=== PATIENT | female | born 1955 | race Caucasian/White ===

== ENCOUNTER → 2019-07-08 | Outpatient (CLI) | payer OTHER ==
--- NOTE | 2019-07-08 14:48 | KCIC ---
BILATERAL SCREENING MAMMOGRAM History: Routine screening. Comparison: None available. Interpreted as new baseline examination. Technique: Routine bilateral digital mammogram views were obtained. Findings: Breast Tissue Density C : The breasts are heterogeneously dense, which may obscure small masses. A benign calcification is noted in each breast. There are no dominant masses, suspicious microcalcifications, or architectural distortion. IMPRESSION: No mammographic evidence of malignancy. Recommend routine screening. BI-RADS category 2: Benign findings. The images were reviewed with computer aided detection. Patient information is entered into the reminder system with a target due date for the next screening mammogram. Mammography is the most sensitive method for finding small breast cancers, but it does not detect them all and is not a substitute for careful clinical examination. A negative mammogram does not negate a clinically suspicious finding and should not result in delay in biopsying a clinically suspicious abnormality. "Our facility is accredited by the [employer] Mammography [employer]." Electronically signed by: Jovanny Bob MD (07/08/2019 2:45 PM) [id number]
== END | disposition home or self-care (01) ==
LOC: KCIC MAMMO 13:38
PROVIDERS: ATTEND Nurse Practitioner Gerontology
DX: Z12.31 Encounter for screening mammogram for malignant neoplasm of breast (principal); N64.89 Other specified disorders of breast
CPT/HCPCS: 77067

== ENCOUNTER → 2020-01-11 | Outpatient (CLI) | payer OTHER ==
--- NOTE | 2020-01-11 17:33 | RAD ---
2 view study of both knees Clinical indications: Bilateral knee pain. History of MS. Left knee: No acute fracture or dislocation or lytic process is seen. No significant arthritic change is evident. No left knee joint effusion is seen radiographically. Right knee: No acute fracture or dislocation or lytic process is seen. No significant arthritic change is seen. No significant right knee joint effusion is seen. IMPRESSION: No significant osseous abnormality of either knee. Electronically signed by: Dustin Schaeffer MD (01/11/2020 5:30 PM) [id number]
== END | disposition home or self-care (01) ==
LOC: RAD 14:29
PROVIDERS: ATTEND Psychiatry & Neurology Neurology with Special Qualifications in Child Neurology
DX: M25.561 Pain in right knee (principal); M25.562 Pain in left knee; G35 Multiple sclerosis
CPT/HCPCS: 73560

== ENCOUNTER → 2020-06-16 | Outpatient (CLI) | payer OTHER ==
--- NOTE | 2020-06-16 16:46 | KCIC ---
INDICATION: Reason: coccydynia / Spl. Instructions: / History: Injured coccyx as a child. Pain in coccyx. COMPARISON: Plain film from May 29, 2020 TECHNIQUE: Multiplanar, multisequence MRI images are obtained through the sacrum and coccyx. FINDINGS: There is degenerative changes seen at the partially visualized lower lumbar spine with disc protrusion and osteophyte formation at L4-5 with annular tear. There is also L4-5 bilateral facet joint effusions with facet hypertrophy. At L3-4 there is some high T2 signal seen surrounding the right facet joint with edema seen within the pedicle and vertebral body as well as adjacent soft tissues. This is not well evaluated since this is only partially seen. Partial visualization of suspected disc protrusion as well. There is also facet joint effusion at L5-S1 on the left with adjacent small synovial cyst. Tarlov cyst formation at the sacrum measuring up to approximately a centimeter. There is some mild high T2 signal seen within the perispinal musculature. Colonic diverticulosis. Small amount of high T2 signal seen in the presacral region. IMPRESSION: * No evidence of acute fracture or dislocation within the sacrum. * There is a small amount of high T2 signal seen in the presacral space which could be from trace fluid or mild presacral edema. * At the partially visualized lower lumbar spine. Degenerative changes including disc protrusions as well as facet hypertrophy with facet joint effusions. This is only partially seen on this examination. There is also some edema seen surrounding the right facet joint at L3-4 with edema in the adjacent marrow. * Mild high T2 signal is seen within the perispinal musculature which could be from edema. Could be from muscular strain if the patient has appropriate symptoms. Electronically signed by: Basim Helm MD (06/16/2020 4:38 PM) [id number]
== END ==
LOC: KCIC MRI 13:42
PROVIDERS: ATTEND Orthopaedic Surgery
DX: K57.30 Diverticulosis of large intestine without perforation or abscess without bleeding (principal); M51.26 Other intervertebral disc displacement, lumbar region; M25.78 Osteophyte, vertebrae; G03.8 Meningitis due to other specified causes
CPT/HCPCS: 72195

== ENCOUNTER → 2020-08-30 | Outpatient (CLI) | payer OTHER ==
--- NOTE | 2020-08-30 17:21 | KCIC ---
Bilateral digital screening mammograms: Reason for examination: Routine screening. Comparison is made to previous study dated 07/08/2019. Interpretation was made with the benefit of CAD. The skin and nipples show no abnormalities. No abnormal axillary lymph nodes are seen. The breast par enchyma is extremely dense. (Breast density: Category D.) There are no dominant masses, suspicious ca lcifications or architectural distortion. Impression: No evidence of malignancy. Recommend routine screening. Your patient's mammogram demonstrates that she has dense breast tissue (breast density category C or D), which could hide abnormalities, and if she has other risk factors for breast cancer that have bee n identified, she might benefit from supplemental screening tests that may be suggested by you as her ordering physician. Dense breast tissue, in and of itself, is a relatively common condition. Therefo re, this information is not provided to cause undue concern, but rather to raise your awareness and t o promote discussion with your patient regarding the presence of other risk factors, in addition to d ense breast tissue. Your patient's mammography results will be sent to her. BI-RAD Category 1: Negative. "Our facility is accredited by the [employer] Mammography [employer]." This patient's information has been entered into a reminder system for the patient to be notified wit h the results of her examination and a target date for the next mammogram. Electronically signed by: Eli Banegas MD (08/30/2020 5:18 PM) [id number]
== END ==
LOC: KCIC MAMMO 13:54
PROVIDERS: ATTEND Family Medicine
DX: Z12.31 Encounter for screening mammogram for malignant neoplasm of breast (principal)
CPT/HCPCS: 77067

== ENCOUNTER → 2020-10-09 | Outpatient (CLI) | payer OTHER ==
[~2020-10-09] MED LIST: ACYC400T PO; ALPR0.5T6 PO; ASPI-630 PO; BACL10TA PO; CAPS42.514 TP; CRAN250C PO; ESTR42.53 VG; FENO134C PO; FING0.5C3 PO; FLAX10003 PO; GABA300C18 PO; HYDR25TA PO; IOHEXOL 180 MG/ML 10 ML VIAL. ONE; LISI10TA16 PO; LOVA20TA2 PO; LYSI500T8 PO; MAGN100T3 PO; MELO15TA23 PO; MIRA50TA PO; MIRT15TA90 PO; MULT-245 PO; QUET25TA5 PO; THIA100T57 PO; TRAM50TA PO; TRAZ-123 PO; UBID30CA9 PO; VENL150C6 PO; VITA1CAP7 PO; VITA25006 PO; ZINC50TA39 PO; methylPREDNISolone ACETATE 40 MG/ML VIAL. ONE; methylPREDNISolone ACETATE 80 MG/ML VIAL. ONE
--- NOTE | 2020-10-09 12:49 | PDOC1 ---
INITIAL PAIN CONSULT DATE OF SERVICE: DOS: DATE: 10/09/20 TIME: 12:41 CHIEF COMPLAINT: Chief Complaint: Low back and right lower extremity pain HISTORY OF PRESENT ILLNESS: 65-year-old female presents with history of pain low back right lower extremity for about a month. Patient reports no specific injury or accident that she is aware of but the pain is increased in the low back rating the right lower extrem ity mostly in the posterior gluteus posterior lateral thigh lateral anterior thigh into the calf as well as the lateral thigh and medial thigh on the right lower extremity patient reports is worse with walking standing changing positions better with sitting or laying down is waking her up from sleep about every 2-3 hours all night patient reports it can affect her bowel and bladder control she actually has some incontinence of the bladder which is noticeable when the pain is at its worst. Patient reports it does affect her ability to walk as well she usually keeps a cane with her or a rolling walker but does not have it with her today. Patient has tried Tylenol as well as oxycodone both of which help and have a very small amount patient had physical therapy in the past but not for her current condition has not had any formal therapy for this currently she is doing some stretching at home on her own only. Patient rates her disability rating 0-10 10 being the worst is a 9 oh family home responsibilities self-care 10 with recreation and social activity and sexual behavior 8 with life support activities. Patient did have a MRI scan of the pelvis showing the lumbar spine as well showing at L4-5 bilateral facet joint effusions and L3-4 high T2 signal surrounding the right facet joint disc retrusion at L4-5 with disc and osteophyte formation and annular tear as well. Patient reports no other complaints at this time. PAST MEDICAL HISTORY: PMH: Hypertension, arthritis, bladder incontinence, previous pregnancies PREVIOUS SURGERIES: Past Surgical Hx: Hysterectomy 1976, appendectomy 1975 CURRENT MEDICATIONS: Current Meds: Active Scripts Medications Dose Route/Sig Max Daily Dose Days Date Category Lovastatin 20 Mg Tablet 1 Tab PO DAILY 10/09/20 Reported Gabapentin (Gabapentin) 300 Mg Capsule 300 Mg PO TID 10/09/20 Reported Meloxicam 15 Mg Tablet 1 Tab PO DAILY 30 10/09/20 Reported Baclofen 10 Mg Tablet 1 Tab PO TID 10/09/20 Reported Alprazolam 0.5 Mg Tablet 1 Tab PO TID 10/09/20 Reported Venlafaxine Hcl Er (Venlafaxine Hcl) 150 Mg Cap.er.24h 2 Cap PO DAILY 10/09/20 Reported Trazodone Hcl 100 Mg Tablet 1 Tab PO QHS 10/09/20 Reported Tramadol Hcl 50 Mg Tablet 50 Mg PO Q4HRS PRN 10/09/20 Reported Gilenya (Fingolimod Hcl) 0.5 Mg Capsule 0.5 Mg PO DAILY 10/09/20 Reported Fenofibrate (Fenofibrate,Micronized) 134 Mg Capsule 1 Cap PO DAILY 10/09/20 Reported Lisinopril 10 Mg Tablet 1 Tab PO DAILY 10/09/20 Reported Estrace (Estradiol) 42.5 Gm Cream.appl 1 Gm VG 3X/WEEK 10/09/20 Reported Vitamin B-1 (Thiamine Hcl) 100 Mg Tablet 1 Tab PO DAILY 30 10/09/20 Reported Seroquel (Quetiapine Fumarate) 25 Mg Tablet 25 Mg PO BID 10/09/20 Reported Mirtazapine 15 Mg Tab.rapdis 1 Tab PO QHS 30 10/09/20 Reported Capsaicin 42.5 Gm Cream..g. 42.5 Gm TP DAILY 10/09/20 Reported Hydroxyzine Hcl 25 Mg Tablet 25 Mg PO QID 10/09/20 Reported Acyclovir 400 Mg Tablet 1 Tab PO BID 10/09/20 Reported Noxifol-D3 2,500 Unit-1 mg Tab (Vitamin D3/Folic Acid) 2,500 Unit Tablet 1 Tab PO DAILY 30 10/09/20 Reported Multi Vitamin Daily (Multivitamin) 1 Each Tablet 1 Tab PO DAILY 30 10/09/20 Reported Coq-10 (Ubidecarenone) 30 Mg Capsule 30 Mg PO DAILY 10/09/20 Reported Zinc 50 Mg Tablet 1 Tab PO DAILY 30 10/09/20 Reported Magnesium (Magnesium Amino Acid Chelate) 100 Mg Tablet Unknown Dose PO DAILY 10/09/20 Reported Super B-50 Complex (Vitamin B Complex) 1 Each Capsule 1 Each PO DAILY 10/09/20 Reported L-Lysine (Lysine) 500 Mg Tablet 1 Tab PO DAILY 30 10/09/20 Reported Flax Oil (Flaxseed Oil) 1,000 Mg Capsule 1 Cap PO BID 30 10/09/20 Reported Aspirin 81 Mg Tab.chew 1 Tab PO DAILY 10/09/20 Reported Cranberry (Cranberry Extract) 250 Mg Capsule 250 Mg PO DAILY 10/09/20 Reported Myrbetriq (Mirabegron) 50 Mg Tab.er.24h 50 Mg PO DAILY 10/09/20 Reported ALLERGIES; Allergies: Coded Allergies: No Known Drug Allergies (Unverified , 10/09/20) FAMILY HISTORY: Family Hx: Major medical conditions that she is aware of SOCIAL HISTORY: Social Hx: Patient is under alcohol does smoke marijuana occasionally uses any other tobacco products or any other illegal illicit recreational drugs. Patient reports he is currently on disability [facility] REVIEW OF SYSTEMS: ROS: Positive for those items mentioned in history of present illness, all systems are reviewed, otherwise negative ,and are complete full and well-documented on patient's chart. PHYSICAL EXAM: VS: Blood pressure is 121/45 pulse 72 respirations 18 temperature 97.8 was Fahrenheit height is 5 foot 4 inches weight 116 pounds PE: PHYSICAL EXAMINATION: GENERAL: The patient is awake, alert, oriented, appropriate, very pleasant demeanor HEENT: Shows normocephalic, atraumatic. Extraocular movements are intact and symmetrical. Oral cavity: Mucous membranes moist and pink. Dentition is intact. NECK: Shows anterior throat supple without palpable lymphadenopathy noted. Swallow reflex symmetrical. CHEST: Shows normal on inspection. Breath sounds are clear bilaterally, no rales or rhonchi bilaterally. HEART: Shows S1, S2 clear. No murmurs auscultated. ABDOMEN: Soft, nontender, nondistended, flat. No palpable organomegaly is noted. No rebound or guarding demonstrated. BACK: Shows spine grossly in the midline. Normal-appearing cervical lordotic curvature. There is slightly increased thoracic kyphosis, some minor flattening of the lumbar lordotic curvature. Lumbar paraspinous muscles show symmetrical on inspection, on palpation shows some moderate tenderness diffusely throughout the upper, middle and lower distribution of the paraspinous muscles bilaterally and also into the lower thoracic paraspinous musculature, firm and tender, but without specific trigger points, without radiation of pain. The patient has good rotational motion of the lumbar spine, both laterally as well as extension and flexion without significant difficulty. No tenderness over the spinous processes, sacrum or sacroiliac regions. EXTREMITIES: Lower extremities show deep tendon reflexes 2+ in the patellar and tendo calcaneus tendons. Motor exam is 4 on a scale of 5 with right dorsiflexion, extension, quadriceps and hamstring flexion and 5/5 on the left. Peripheral pulses are 1+ posterior tibial. No peripheral edema is noted bilat erally. Lower extremities are warm and dry to touch, equal in color and appearance. Straight leg raise noted to be positive on the right about 30 degrees, left side is negative. Gaenslen's and Tommie's maneuvers are negative as well. The patient is able to stand, stand on her toes without significant difficulty or loss of balance walks with a favoring gait does appear to favor the right lower extremity slightly more than the left.. SKIN: Shows warm and dry, good turgor. No edema. No sores, rashes or bruising throughout. IMPRESSION: Impression: 65-year-old female with approximate 1 month history increasing pain low back with radiating pain into the right lower extremity and radicular fashion. MRI scan is noted Arthritis Hypertension Plan: Options were discussed with the patient including conservative medical management physical therapies interventional techniques. Patient like to pursue interventional techniques. We discussed a lumbar epidural steroid ejections description as well as anatomical model to describe the procedure. Patient would like to proceed. Risks were discussed including but not limited to: Bleeding, infection, possibility of epidural hematoma and subsequent neurological compromise, dural puncture, headaches, spinal cord and/or nerve damage, side effects of steroid medication, and poor results regarding pain control. Patient understands and wished to proceed. We will have patient return in approximately 2 weeks for follow-up. Patient was counseled as return appointment activity level and side effects to be aware of. Procedure is lumbar epidural steroid injection under local anesthetic using sterile prep and drape at the L4-5 level using C-arm fluoroscopic guidance in both AP and lateral views medications injected is 120 mg Depo-Medrol + 10 mL preservative-free normal saline and 2 mL contrast- condition at discharge is stable patient tolerated procedure well had no complications. JOSEPHINE WILLINGHAM MD Oct 09, 2020 12:49
== END | disposition home or self-care (01) ==
LOC: PNCL 09:14
PROVIDERS: ATTEND Anesthesiology
DX: M54.5 Low back pain (principal); M79.604 Pain in right leg; I10 Essential (primary) hypertension; M19.90 Unspecified osteoarthritis, unspecified site; Z90.710 Acquired absence of both cervix and uterus; Z98.890 Other specified postprocedural states; Z79.82 Long term (current) use of aspirin; Z79.899 Other long term (current) drug therapy
CPT/HCPCS: 62323; J1030; J1040; Q9965; 77002

== ENCOUNTER → 2020-10-30 | Outpatient (CLI) | payer OTHER ==
[~2020-10-30] MED LIST changes: +ACYC-12 PO; -ACYC400T PO; +MIRA25TA PO; -MIRA50TA PO; +TRAZ150T49 PO
--- NOTE | 2020-10-30 11:04 | PDOC ---
Progress Note - Pain Clinic Date of Service: DOS: DATE: 10/30/20 TIME: 11:00 Diagnosis: Dx: lumbar radiculopathy with lumbar degenerative disc disease History or Present Illness: HPI: 65-year-old female returns for follow-up status post lumbar epidurals or injection x1. Patient reports about 20 to 30% improvement with increased activities greater ease and comfort and feeling much better and happier after the injection for about 2 weeks patient reports pain returning now in the low back and the right lower extremity posterior gluteus lateral thigh anterior thigh and posterior thigh patient reports that for the first 2 weeks or so she was doing much better doing household activities walking to greater ease and comfort travel with greater ease in getting up and down easier patient reports still does not awaken her from sleep at night for most nights. Patient reports her pain is 8 on scale 10 is worse over the past week 7 on average 6 its least and 7 today patient scribes aching sharp tightness shooting in the right leg tingling in the leg as well constant pain at times and also some tingling in the lateral aspect of the right foot. Patient reports no new motor or sensory deficits no bladder incontinence. Physical Exam: VS: Blood pressure is 96/60 pulse 87 respiration 16 temperature 97.6 F weight is 116 pounds PE: PHYSICAL EXAMINATION: GENERAL: The patient is awake, alert, oriented, appropriate, very pleasant demeanor, patient accompanied by her spouse. HEENT: Shows normocephalic, atraumatic. Extraocular movements are intact and symmetrical. Oral cavity: Mucous membranes moist and pink. Dentition is intact. NECK: Shows anterior throat supple without palpable lymphadenopathy noted. Swallow reflex symmetrical. CHEST: Shows normal on inspection. Breath sounds are clear bilaterally, no rales or rhonchi. HEART: Shows S1, S2 clear. No murmurs auscultated. ABDOMEN: Soft, nontender, nondistended, flat. No palpable organomegaly is noted. No rebound or guarding demonstrated. BACK: Shows spine grossly in the midline. Normal-appearing cervical lordotic curvature. There is slightly increased thoracic kyphosis, some minor flattening of the lumbar lordotic curvature. Lumbar paraspinous muscles show symmetrical on inspection, on palpation shows some moderate tenderness diffusely throughout the upper, middle and lower distribution of the paraspinous muscles, without specific trigger points, without radiation of pain. The patient has good rotational motion of the lumbar spine, both laterally as well as extension and flexion without significant difficulty. EXTREMITIES: Lower extremities show deep tendon reflexes 2+ in the patellar and tendo calcaneus tendons. Motor exam is 4 on a scale of 5 with right dorsiflexion, extension, quadriceps and hamstring flexion and 5/5 on the left. Peripheral pulses are 1+ posterior tibial. No peripheral edema is noted rene aterally. SKIN: Shows warm and dry, good turgor. No edema. No sores, rashes or bruising throughout. Procedure: Procedure: Options discussed with the patient. Patient chart reviews her current medication regimen updated current review of systems updated today as well. We will proceed with a second in series lumbar epidural steroid traction stable fluoroscopic guidance. Risks were discussed including but not limited to: Bleeding, infection, possibility of epidural hematoma and subsequent neurological compromise, dural puncture, headaches, spinal cord and/or nerve damage, side effects of steroid medication, and poor results regarding pain control. Patient understands and wished to proceed. Patient will return to clinic in approximate 2 weeks for follow-up, was counseled as to return appointment activity level and side effects to be aware of. Medication Injected: Med Injected: Procedure is lumbar epidural steroid injection under local anesthetic using sterile prep and drape at the L4-5 level using C-arm fluoroscopic guidance in both AP and lateral views medications injected is 120 mg Depo-Medrol + 10 mL preservative-free normal saline and 2 mL contrast- condition at discharge is stable patient tolerated procedure well had no complications. Condition at Discharge: Condition at Discharge: Condition at discharge stable, patient alert procedure well and had no complications. JOSEPHINE WILLINGHAM MD Oct 30, 2020 11:04
--- NOTE | 2020-10-30 11:04 | PDOC4 ---
PROCEDURE Procedure Patient was consented for lumbar epidural steroid injection. Risks were dis cussed including but not limited to: Bleeding, infection, possibility of epidural hematoma and subsequent neurological compromise, dural puncture, headaches, spinal cord and/or nerve damage, side effects of steroid medication, and poor results regarding pain control. Patient understands and wished to proceed. Procedure is lumbar epidural steroid injection under local anesthetic using sterile prep and drape at the L4-5 level using C-arm fluoroscopic guidance in both AP and lateral views medications injected is 120 mg Depo-Medrol + 10 mL preservative-free normal saline and 2 mL contrast- condition at discharge is stable patient tolerated procedure well had no complications. JOSEPHINE WILLINGHAM MD Oct 30, 2020 11:04
== END | disposition home or self-care (01) ==
LOC: PNCL 10:13
PROVIDERS: ATTEND Anesthesiology
DX: M51.16 Intervertebral disc disorders with radiculopathy, lumbar region (principal); Z79.82 Long term (current) use of aspirin; Z79.899 Other long term (current) drug therapy; Z98.890 Other specified postprocedural states
CPT/HCPCS: 62323; J1030; J1040; Q9965

== ENCOUNTER → 2020-11-13 | Outpatient (CLI) | payer OTHER ==
[~2020-11-13] MED LIST changes: -methylPREDNISolone ACETATE 80 MG/ML VIAL. ONE
--- NOTE | 2020-11-13 11:16 | PDOC4 ---
PROCEDURE Procedure Patient was consented for lumbar epidural steroid injection. Risks were dis cussed including but not limited to: Bleeding, infection, possibility of epidural hematoma and subsequent neurological compromise, dural puncture, headaches, spinal cord and/or nerve damage, side effects of steroid medication, and poor results regarding pain control. Patient understands and wished to proceed. Procedure is lumbar epidural steroid injection under local anesthetic using sterile prep and drape at the L4-5 level using C-arm fluoroscopic guidance in both AP and lateral views medications injected is 120 mg Depo-Medrol + 10 mL preservative-free normal saline and 2 mL contrast- condition at discharge is stable patient tolerated procedure well had no complications. JOSEPHINE WILLINGHAM MD November 13, 2020 11:16
--- NOTE | 2020-11-13 11:16 | PDOC ---
Progress Note - Pain Clinic Date of Service: DOS: DATE: 11/13/20 TIME: 11:13 Diagnosis: Dx: Lumbar radiculopathy with lumbar degenerative disc disease History or Present Illness: HPI: 65-year-old female returns follow-up status post lumbar epidural steroid injections x2. Patient reports approximately 80% improvement after the last injection pain still in the low back bilaterally more on the right than the left with the right posterior gluteus lateral thigh and anterior thigh patient reports that her leg is doing much better however her backslash some significant pain patient rates is 8 on scale 10 is worse over the past week 5 on average 4 days least is a 4 today patient reports aching sharp dull tingling at times radiating can be bilateral but mostly on the right side patient reports is better with sitting or laying down does not awaken her from sleep at night she been increasing her distance walking doing household activities but she does a lot of planting and gardening recently which is been more tolerable but still pain in the low back as noted. Patient reports no other complaints at this time. Physical Exam: VS: Blood pressure is 104/60 pulse 81 respirations 16 temperature 98.2 F height is 5 feet 4 his weight is 117 pounds PE: PHYSICAL EXAMINATION: GENERAL: The patient is awake, alert, oriented, appropriate, very pleasant demeanor HEENT: Shows normocephalic, atraumatic. Extraocular movements are intact and symmetrical. Oral cavity: Mucous membranes moist and pink. Dentition is intact. NECK: Shows anterior throat supple without palpable lymphadenopathy noted. CHEST: Shows normal on inspection. Breath sounds are clear bilaterally. HEART: Shows S1, S2 clear. No murmurs auscultated. ABDOMEN: Soft, nontender, nondistended, flat. No palpable organomegaly is noted. No rebound or guarding demonstrated. BACK: Shows spine grossly in the midline. Normal-appearing cervical lordotic curvature. There is slightly increased thoracic kyphosis, some minor flattening of the lumbar lordotic curvature. Lumbar paraspinous muscles show symmetrical on inspection, on palpation shows some moderate tenderness diffusely throughout the upper, middle and lower distribution of the paraspinous muscles without specific trigger points, without radiation of pain. The patient has good rotational motion of the lumbar spine, both laterally as well as extension and flexion without significant difficulty. No tenderness over the spinous processes, sacrum or sacroiliac regions. EXTREMITIES: Lower extremities show deep tendon reflexes 2+ in the patellar and tendo calcaneus tendons. Motor exam is 4 on a scale of 5 with right dorsiflexion, extension, quadriceps and hamstring flexion and 5/5 on the left. Peripheral pulses are 1+ posterior tibial. No peripheral edema is noted bilaterally. Lower extremities are warm and dry. SKIN: Shows warm and dry, good turgor. No edema. No sores, rashes or bruising throughout. Procedure: Procedure: Options discussed with the patient. Patient chart reviews her current medication regimen updated review systems updated today as well. We will proceed with a third in the series lumbar epidural steroid traction stable fluoroscopic guidance. Risks were discussed including but not limited to: Bleeding, infection, possibility of epidural hematoma and subsequent neurological compromise, dural puncture, headaches, spinal cord and/or nerve damage, side effects of steroid medication, and poor results regarding pain control. Patient understands and wished to proceed. Return to clinic in approximate 2 weeks for follow-up, was counseled as return appointment activity level and side effects to be aware of. Medication Injected: Med Injected: Procedure is lumbar epidural steroid injection under local anesthetic using sterile prep and drape at the L4-5 level using C-arm fluoroscopic guidance in both AP and lateral views medications injected is 120 mg Depo-Medrol + 10 mL preservative-free normal saline and 2 mL contrast- condition at discharge is stable patient tolerated procedure well had no complications. Condition at Discharge: Condition at Discharge: Condition at discharge stable, patient already the procedure well and had no complications. JOSEPHINE WILLINGHAM MD November 13, 2020 11:16
== END | disposition home or self-care (01) ==
LOC: PNCL 10:36
PROVIDERS: ATTEND Anesthesiology
DX: M51.16 Intervertebral disc disorders with radiculopathy, lumbar region (principal); Z79.82 Long term (current) use of aspirin; Z79.899 Other long term (current) drug therapy
CPT/HCPCS: 62323; J1030; Q9965

== ENCOUNTER → 2021-06-14 | Outpatient (CLI) | payer OTHER ==
[~2021-06-14] MED LIST changes: +methylPREDNISolone ACETATE 80 MG/ML VIAL. ONE
--- NOTE | 2021-06-14 11:26 | PDOC ---
Progress Note - Pain Clinic Date of Service: DOS: DATE: 06/14/21 TIME: 11:23 Diagnosis: Dx: Lumbar radiculopathy with lumbar degenerative disc disease History or Present Illness: HPI: 66-year-old female returns for follow-up status post lumbar epidural steroid injections last seen November 13, 2020 patient did very well with about 90% improvement until about 2 weeks ago the pain began to return in the low back and now in both lower extremities instead of just the right lower extremity which is new for her in the left lower extremity as well posterior gluteus lateral thigh anterior thigh medial thigh medial lower leg and calves as well worse with walking standing patient ports significant pain with any weightbearing on her right leg which is new as well as she was generally able to do very well and was increasing activity distance walking doing household activities try with greater ease and comfort doing work activities sleeping better at night now the pain is beginning to awaken her about every 6 hours patient reports significant fatigability in the right lower extremity compared to the left but both are painful patient reports a 10 on scale 10 is worst least and average is a 10 today patient ports sharp and shooting radiating severe unbearable with any weightbearing as well. Patient reports no bowel or bladder continence. Physical Exam: VS: Blood pressure is 118/71 pulse 74 respirations are 18 temperature 98.3 F height is 5 feet 4 inches weight is 111 pounds PE: PHYSICAL EXAMINATION: GENERAL: The patient is awake, alert, oriented, appropriate, very pleasant in demeanor, patient [place] by her spouse HEENT: Shows normocephalic, atraumatic. Extraocular movements are intact and symmetrical. Oral cavity: Mucous membranes moist and pink. Dentition is intact. NECK: Shows anterior throat supple without palpable lymphadenopathy noted. Swallow reflex symmetrical. CHEST: Shows normal on inspection. Breath sounds are clear bilaterally, no rales or rhonchi. HEART: Shows S1, S2 clear. No murmurs auscultated. ABDOMEN: Soft, nontender, nondistended. No palpable organomegaly is noted. BACK: Shows spine grossly in the midline. Normal-appearing cervical lordotic curvature. There is slightly increased thoracic kyphosis, some minor flattening of the lumbar lordotic curvature. Lumbar paraspinous muscles show symmetrical on inspection, on palpation shows some moderate tenderness diffusely throughout the upper, middle and lower distribution of the paraspinous muscles without specific trigger points, without radiation of pain. The patient has good rotational motion of the lumbar spine, both laterally as well as extension and flexion without significant difficulty. EXTREMITIES: Lower extremities show deep tendon reflexes 2+ in the patellar and tendo calcaneus tendons. Motor exam is full on a scale of 5 with right dorsiflexion, extension, quadriceps and hamstring flexion and 5/5 on the left. Peripheral pulses are 1 posterior tibial. No peripheral edema is noted bilaterally. Lower extremities are warm and dry. SKIN: Shows warm and dry, good turgor. No edema. No sores, rashes or bruising throughout. Procedure: Procedure: Options were discussed with patient. Patient chart was reviewed his current medication regimen updated current review of system updated today as well. We will proceed with a lumbar epidural steroid injection today with fluoroscopic guidance risks were discussed including but not limited to: Bleeding, infection, possibility of epidural hematoma and subsequent neurological compromise, dural puncture, headaches, spinal cord and/or nerve damage, side effects of steroid medication, and poor results regarding pain control. Patient understands and wished to proceed. Patient return to clinic in approximate 2 weeks for follow- up, was counseled as return appointment, activity, and side effect to be aware of. Also, will order MRI scan of the lumbar spine to better assess her bilateral radiculopathy now as well as the significant increase in pain in the right lower extremity. Medication Injected: Med Injected: Procedure is lumbar epidural steroid injection under local anesthetic using sterile prep and drape at the L4-5 level using C-arm fluoroscopic guidance in both AP and lateral views medications injected is 120 mg Depo-Medrol +10mL preservative-free normal saline and 2 mL contrast- condition at discharge is stable patient tolerated procedure well had no complications. Condition at Discharge: Condition at Discharge: Condition at discharge stable, paced tolerated procedure well and had no complications JOSEPHINE WILLINGHAM MD Jun 14, 2021 11:26
--- NOTE | 2021-06-14 11:27 | PDOC4 ---
Procedure Note: ICD 10 Code: ICD 10 Code: M51.16 M51.36 Procedure Note: Patient was consented for lumbar epidural steroid injection with fluoroscopic guidance risks were discussed including but not limited to: Bleeding, infection, possibility of epidural hematoma and subsequent neurological compromise, dural puncture, headaches, spinal cord and/or nerve damage, side effects of steroid medication, and poor results regarding pain control. Patient understands and wished to proceed. Procedure is lumbar epidural steroid injection under local anesthetic using sterile prep and drape at the L4-5 level using C-arm fluoroscopic guidance in both AP and lateral views medications injected is 120 mg Depo-Medrol +10mL preservative-free normal saline and 2 mL contrast- condition at discharge is stable patient tolerated procedure well had no complications. JOSEPHINE WILLINGHAM MD Jun 14, 2021 11:27
== END | disposition home or self-care (01) ==
LOC: PNCL 10:00
PROVIDERS: ATTEND Anesthesiology
DX: M51.16 Intervertebral disc disorders with radiculopathy, lumbar region (principal); Z79.82 Long term (current) use of aspirin; Z79.899 Other long term (current) drug therapy
CPT/HCPCS: 62323; J1030; J1040; Q9965

== ENCOUNTER → 2021-06-21 | Outpatient (CLI) | payer OTHER ==
[~2021-06-21] MED LIST changes: -IOHEXOL 180 MG/ML 10 ML VIAL. ONE; -methylPREDNISolone ACETATE 40 MG/ML VIAL. ONE; -methylPREDNISolone ACETATE 80 MG/ML VIAL. ONE
--- NOTE | 2021-06-21 16:07 | RAD ---
MR LUMBAR SPINE [id number] History: Reason: RIGHT LUMBAR RADICULOPATHY / Spl. Instructions: / History: Technique: Multiplanar, multi sequential MR imaging was performed of the lumbar spine. Comparison: None Findings: L4 superior endplate Schmorl's node with adjacent edema. Chronic mild L3 compression fracture. Normal vertebral body alignment. No acute fracture. L1 vertebral body hemangioma. Conus terminates at the normal location. No evidence of nerve root clumping. L1-L2: No canal or neuroforaminal narrowing. L2-L3: Minimal disc bulge. No canal or neuroforaminal narrowing. L3-L4: Broad-based disc bulge. Mild facet arthropathy. Mild subarticular recess narrowing with abutm ent of the descending L4 nerve roots, right greater than left. Moderate right neuroforaminal narrowin g. L4-L5: Small disc bulge. Advanced facet arthropathy. Bilateral facet joint effusions. No canal narro wing. Subarticular recess narrowing. No neuroforaminal narrowing. L5-S1: Left paracentral disc protrusion. Moderate facet arthropathy. No canal narrowing. No neurofor aminal narrowing. Impression: 1. Multilevel lumbar spondylosis most prominent L3-L4 and L4-L5. 2. L3-L4 subarticular recess narrowing with abutment of the descending L4 nerve roots, right greater than left. 3. Moderate right L3-4 neuroforaminal narrowing. 4. L4 superior endplate Schmorl's node with adjacent edema, may indicate acute Schmorl's node or rel ated to degenerative endplate edema. Electronically signed by: Miki Gonzalez DO (06/21/2021 4:05 PM) [id number]
== END | disposition home or self-care (01) ==
LOC: MRI 13:47
PROVIDERS: ATTEND Anesthesiology
DX: M47.26 Other spondylosis with radiculopathy, lumbar region (principal); M48.061 Spinal stenosis, lumbar region without neurogenic claudication; Z79.82 Long term (current) use of aspirin; Z79.899 Other long term (current) drug therapy; Z98.890 Other specified postprocedural states
CPT/HCPCS: 72148

== ENCOUNTER → 2021-06-28 | Outpatient (CLI) | payer OTHER ==
[~2021-06-28] MED LIST changes: +IOHEXOL 180 MG/ML 10 ML VIAL. ONE; +methylPREDNISolone ACETATE 40 MG/ML VIAL. ONE; +methylPREDNISolone ACETATE 80 MG/ML VIAL. ONE
--- NOTE | 2021-06-28 13:55 | PDOC ---
Progress Note - Pain Clinic Date of Service: DOS: DATE: 06/28/21 TIME: 13:51 Diagnosis: Dx: Lumbar radiculopathy with lumbar degenerative disc disease History or Present Illness: HPI: 66-year-old female returns for follow-up status post lumbar epidural steroid action x1. Patient reports about 60% improvement still lasting in the low back and right lower extremity patient reports the pain is in the posterior gluteus posterior thigh posterior calf shooting and tight they can be radiating and constant with activity standing walking changing positions patient reports is a 9 on scale 10 is worse over the past week 8 on average 8 its least is an 8 toda y. Patient reports it occasionally is in the left lower extremity as well which is new for her generally just in the right side but does not go as far down the leg on the left but is noticed this with walking more than 15 to 20 minutes over the past week or so. Patient reports it generally is better at night does awaken her from sleep but once every 6 hours when she rolls onto her right side patient reports he needs to reposition or get out of bed change positions and get back to sleep patient reports no bowel or bladder incontinence and is much better walking doing household activities travel with greater ease and comfort as well. Physical Exam: VS: Blood pressure is 137/80 pulse 71 respirations 18 temperature 98.6 F height is 5 feet 4 his weight is 115 pounds. PE: PHYSICAL EXAMINATION: GENERAL: The patient is awake, alert, oriented, appropriate, very pleasant in demeanor HEENT: Shows normocephalic, atraumatic. Extraocular movements are intact and symmetrical. Oral cavity: Mucous membranes moist and pink. NECK: Shows anterior throat supple without palpable lymphadenopathy noted. Swallow reflex symmetrical. CHEST: Shows normal on inspection. Breath sounds are clear bilaterally, distant but no rales rhonchi wheezes auscultated. HEART: Shows S1, S2 clear. No murmurs auscultated. ABDOMEN: Soft, nontender, nondistended. No palpable organomegaly is noted. BACK: Shows spine grossly in the midline. Normal-appearing cervical lordotic curvature. There is slightly increased thoracic kyphosis, some flattening of the lumbar lordotic curvature. Lumbar paraspinous muscles show symmetrical on inspection, on palpation shows some moderate tenderness diffusely throughout the upper, middle and lower distribution of the paraspinous muscles without specific trigger points, without radiation of pain. The patient has good rotational motion of the lumbar spine, both laterally as well as extension and flexion without significant difficulty. No tenderness over the spinous processes, sacrum or sacroiliac regions. EXTREMITIES: Lower extremities show deep tendon reflexes 2+ in the patellar and tendo calcaneus tendons. Motor exam is 4 on a scale of 5 with right dorsiflexion, extension, quadriceps and hamstring flexion and 5/5 on the left. Peripheral pulses are 1+ posterior tibial. No peripheral edema is noted bilaterally. Lower extremities are warm and dry to touch, equal in color and appearance. SKIN: Shows warm and dry, good turgor. No edema. No sores, rashes or bruising throughout. Procedure: Procedure: Options were discussed with the patient. Patient chart reviews her current medication regimen updated current review of systems updated today as well. We will proceed with a lumbar epidural steroid injection today with fluoroscopic guidance. Risks were discussed including but not limited to: Bleeding, inf ection, possibility of epidural hematoma and subsequent neurological compromise, dural puncture, headaches, spinal cord and/or nerve damage, side effects of steroid medication, and poor results regarding pain control. Patient understands and wished to proceed. Patient will return to clinic in approximately 2 weeks for follow-up, was counseled as to return appointment, activity level, and side effect to be aware of. Medication Injected: Med Injected: Procedure is lumbar epidural steroid injection under local anesthetic using sterile prep and drape at the L4-5 level using C-arm fluoroscopic guidance in both AP and lateral views medications injected is 120 mg Depo-Medrol +10mL preservative-free normal saline and 2 mL contrast-patient had initial spinal fluid from needle placement x2 to 3 drops with negative aspiration however with contrast showing intrathecal spread. Needle was withdrawn and replaced with good epidurogram on second attempt. Condition at Discharge: Condition at Discharge: Condition at discharge is stable with mild headache patient was given instructions as to laying supine fluid hydration caffeine as well as oral analgesics and to follow-up within 24 hours if not significantly improved. JOSEPHINE WILLINGHAM MD Jun 28, 2021 13:55
--- NOTE | 2021-06-28 13:56 | PDOC4 ---
Procedure Note: ICD 10 Code: ICD 10 Code: M54.16 M51.36 Procedure Note: Patient was consented for lumbar epidural steroid injection with fluoroscopic guidance. Risks were discussed including but not limited to: Bleeding, infection, possibility of epidural hematoma and subsequent neurological compromise, dural puncture, headaches, spinal cord and/or nerve damage, side effects of steroid medication, and poor results regarding pain control. Patient understands and wished to proceed. Procedure is lumbar epidural steroid injection under local anesthetic using sterile prep and drape at the L4-5 level using C-arm fluoroscopic guidance in both AP and lateral views medications injected is 120 mg Depo-Medrol +10mL preservative-free normal saline and 2 mL contrast-patient with initial intrathecal spread of contrast needle was withdrawn repositioned with good epidurogram on subsequent placement. JOSEPHINE WILLINGHAM MD Jun 28, 2021 13:56
== END | disposition home or self-care (01) ==
LOC: PNCL 13:06
PROVIDERS: ATTEND Anesthesiology
DX: M51.16 Intervertebral disc disorders with radiculopathy, lumbar region (principal); Z79.82 Long term (current) use of aspirin; Z79.899 Other long term (current) drug therapy
CPT/HCPCS: 62323; J1030; J1040; Q9965

== ENCOUNTER → 2021-07-16 | Outpatient (CLI) | payer OTHER ==
--- NOTE | 2021-07-16 14:36 | PDOC4 ---
Procedure Note: ICD 10 Code: ICD 10 Code: M54.16 M51.36 Procedure Note: Patient was consented for lumbar epidural steroid injection with fluoroscopic guidance. Risks were discussed including but not limited to: Bleeding, infection, possibility of epidural hematoma and subsequent neurological compromise, dural puncture, headaches, spinal cord and/or nerve damage, side effects of steroid medication, and poor results regarding pain control. Patient understands and wished to proceed. Procedure is lumbar epidural steroid injection under local anesthetic using sterile prep and drape at the L4-5 level using C-arm fluoroscopic guidance in both AP and lateral views medications injected is 120 mg Depo-Medrol +10mL preservative-free normal saline and 2 mL contrast- condition at discharge is stable patient tolerated procedure well had no complications. JOSEPHINE WILLINGHAM MD Jul 16, 2021 14:36
--- NOTE | 2021-07-16 14:36 | PDOC ---
Progress Note - Pain Clinic Date of Service: DOS: DATE: 07/16/21 TIME: 14:32 Diagnosis: Dx: Lumbar radiculopathy with lumbar degenerative disc disease History or Present Illness: HPI: 66-year-old female returns for follow-up status post lumbar epidural steroid injection x2 patient reports about 80% improvement since her last injection is "coming back some" patient reports some pain in the low back in the right lower extremity posterior gluteus posterior lateral thigh lateral anterior thigh anteromedial thigh posterior thigh to the calf patient reports it is better with sitting and laying down and initially she was much better with distance walking doing household activities working out and exercising with much greater ease and comfort patient reports pain returning now rating it is an 8 on scale 10 is worse over the past week 5 on average 5 its least is a 5 today. Patient recently returned from a vacation trip and did very well with riding in the car for several hours and walking and standing during that time. Patient reports now the pain in the back is aching and shooting in the right leg tingling and burning in the leg as well as some constant pain with standing for too long more than 15 to 20 minutes. Patient reports no bowel or bladder incontinence. Physical Exam: VS: Blood pressure is 150/70 pulse 85 respirations 16 temperature 98.2 F weight is 120 pounds. PE: PHYSICAL EXAMINATION: GENERAL: The patient is awake, alert, oriented, appropriate, very pleasant in demeanor HEENT: Shows normocephalic, atraumatic. Extraocular movements are intact and symmetrical. Oral cavity: Mucous membranes moist and pink. Dentition is intact. NECK: Shows anterior throat supple without palpable lymphadenopathy noted. Swallow reflex symmetrical. CHEST: Shows normal on inspection. Breath sounds are clear bilaterally. HEART: Shows S1, S2 clear. No murmurs auscultated. ABDOMEN: Soft, nontender, nondistended. No palpable organomegaly is noted. BACK: Shows spine grossly in the midline. Normal-appearing cervical lordotic curvature. There is mildly increased thoracic kyphosis, some flattening of the lumbar lordotic curvature. Lumbar paraspinous muscles show symmetrical on inspection, on palpation shows some moderate tenderness diffusely throughout the upper, middle and lower distribution of the paraspinous muscles, but without specific trigger points, without radiation of pain. The patient has good rotational motion of the lumbar spine, both laterally as well as extension and flexion without significant difficulty. No tenderness over the spinous processes, sacrum or sacroiliac regions. EXTREMITIES: Lower extremities show deep tendon reflexes 2+ in the patellar and tendo calcaneus tendons. Motor exam is 4 on a scale of 5 with right do rsiflexion, extension, quadriceps and hamstring flexion and 5/5 on the left. Peripheral pulses are 1+ posterior tibial. No peripheral edema is noted bilaterally. Lower extremities are warm and dry to touch, equal in color and appearance. SKIN: Shows warm and dry, good turgor. No edema. No sores, rashes or bruising throughout. Procedure: Procedure: Options discussed with patient. Patient chart was reviewed as her current medication regimen updated current review of systems updated today as well. We will proceed with a lumbar epidural steroid injection today with fluoroscopic guidance. Risks were discussed including but not limited to: Bleeding, infection, possibility of epidural hematoma and subsequent neurological com promise, dural puncture, headaches, spinal cord and/or nerve damage, side effects of steroid medication, and poor results regarding pain control. Patient understands and wished to proceed. Patient return to clinic in approximately 2 weeks for follow-up, was counseled as return appointment, activity level, and side effect to be aware of. Medication Injected: Med Injected: Procedure is lumbar epidural steroid injection under local anesthetic using sterile prep and drape at the L4-5 level using C-arm fluoroscopic guidance in both AP and lateral views medications injected is 120 mg Depo-Medrol +10mL pr eservative-free normal saline and 2 mL contrast- condition at discharge is stable patient tolerated procedure well had no complications. Condition at Discharge: Condition at Discharge: Condition at discharge is stable, the patient tolerated the procedure well and had no complications. JOSEPHINE WILLINGHAM MD Jul 16, 2021 14:36
== END | disposition home or self-care (01) ==
LOC: PNCL 13:31
PROVIDERS: ATTEND Anesthesiology
DX: M51.16 Intervertebral disc disorders with radiculopathy, lumbar region (principal); Z79.82 Long term (current) use of aspirin; Z79.899 Other long term (current) drug therapy
CPT/HCPCS: 62323; J1030; J1040; Q9965

== ENCOUNTER → 2021-12-11 | Outpatient (CLI) | payer OTHER, MEDICARE ==
[~2021-12-11] MED LIST changes: +DEXAMETHASONE PRES.FREE 10 MG/ML VIAL. ONE; -FENO134C PO; +FENO134C22 PO; -methylPREDNISolone ACETATE 40 MG/ML VIAL. ONE; -methylPREDNISolone ACETATE 80 MG/ML VIAL. ONE
--- NOTE | 2021-12-11 14:27 | PDOC ---
Progress Note - Pain Clinic Date of Service: DOS: DATE: 12/11/21 TIME: 14:22 Diagnosis: Dx: Lumbar radiculopathy with lumbar degenerative disc disease History or Present Illness: HPI: 66-year-old female returns status post lumbar epidural steroid injection last seen July 16, 2021. Patient did not 100% improvement after the last injection with the pain returning now in the low back and right lower extremity posterior gluteus posterior lateral thigh lateral anterior thigh anteromedial thigh medial calf patient reports also some pain on the left side in the calf itself which is new but not the result of any specific injury or accident that she is aware of getting worse for about the past 3 to 4 weeks patient reports is worse with walking and standing changing positions better with sitting or laying down but wakes her from sleep at least twice at night patient reports is a 10 on scale 10 is worst over the past week 9 on average 7 at its least and is a 7 today. Patient reports she has been increasing activities greater distance walking doing household activities traveling with greater ease and comfort has been working out least 2-3 times a week even though the pain is persistent. Patient is still working out consistently and exercise as well as walking daily. Patient reports no bowel or bladder incontinence. Physical Exam: VS: Blood pressure is 137/68 pulse 79 respirations 18 temperature is 98.2 F height is 5 feet 4 inches weight is 116 pounds. PE: PHYSICAL EXAMINATION: GENERAL: The patient is awake, alert, oriented, appropriate, very pleasant in demeanor HEENT: Shows normocephalic, atraumatic. Extraocular movements are intact and symmetrical. Patient wearing eyeglasses. Oral cavity: Mucous membranes moist and pink. Dentition is intact. NECK: Shows anterior throat supple without palpable lymphadenopathy noted. Swallow reflex symmetrical. CHEST: Shows normal on inspection. Breath sounds are clear bilaterally, distant but no rales or rhonchi auscultated. HEART: Shows S1, S2 clear. No murmurs auscultated. ABDOMEN: Soft, nontender, nondistended. No palpable organomegaly is noted. BACK: Shows spine grossly in the midline. Normal-appearing cervical lordotic curvature. There is slightly increased thoracic kyphosis, some flattening of the lumbar lordotic curvature. Lumbar paraspinous muscles show symmetrical on inspection, on palpation shows some moderate tenderness diffusely throughout the upper, middle and lower distribution of the paraspinous muscles without specific trigger points, without radiation of pain. The patient has good rotational motion of the lumbar spine, both laterally as well as extension and flexion without significant difficulty. EXTREMITIES: Lower extremities show deep tendon reflexes 2+ in the patellar and tendo calcaneus tendons. Motor exam is 4 on a scale of 5 with right dorsiflexion, extension, quadriceps and hamstring flexion and 5/5 on the left. Peripheral pulses are 1+ posterior tibial. No peripheral edema is noted bilaterally. Lower extremities are warm and dry. SKIN: Shows warm and dry, good turgor. No edema. No sores, rashes or bruising throughout. Procedure: Procedure: Options were discussed with the patient. Patient's old chart was reviewed as her current medication regimen updated current review of systems updated today as well. We will proceed with a lumbar epidural steroid injection today with fluoroscopic guidance. Risks were discussed including but not limited to: Bleeding, infection, possibility of epidural hematoma and subsequent neurological compromise, dural puncture, headaches, spinal cord and/or nerve damage, side effects of steroid medication, and poor results regarding pain control. Patient understands and wished to proceed. Patient will return to the clinic in approximately 2 weeks for follow-up, was counseled as to return appointment, active level, and side effect to be aware of. Medication Injected: Med Injected: Procedure is lumbar epidural steroid injection under local anesthetic using sterile prep and drape at the L4-5 level using C-arm fluoroscopic guidance in both AP and lateral views medications injected is 20 mg dexamethasone +10mL preservative-free normal saline and 2 mL contrast- condition at discharge is stable patient tolerated procedure well had no complications. Condition at Discharge: Condition at Discharge: Condition at discharge stable, patient tolerated procedure well and had no complications. JOSEPHINE WILLINGHAM MD December 11, 2021 14:27
--- NOTE | 2021-12-11 14:28 | PDOC4 ---
Procedure Note: ICD 10 Code: ICD 10 Code: M54.16 M51.36 Procedure Note: Patient was consented for lumbar epidural steroid injection with fluoroscopic guidance. Risks were discussed including but not limited to: Bleeding, infection, possibility of epidural hematoma and subsequent neurological compromise, dural puncture, headaches, spinal cord and/or nerve damage, side effects of steroid medication, and poor results regarding pain control. Patient understands and wished to proceed. Procedure is lumbar epidural steroid injection under local anesthetic using sterile prep and drape at the L4-5 level using C-arm fluoroscopic guidance in both AP and lateral views medications injected is 20 mg dexamethasone +10mL preservative-free normal saline and 2 mL contrast- condition at discharge is stable patient tolerated procedure well had no complications. JOSEPHINE WILLINGHAM MD December 11, 2021 14:28
== END | disposition home or self-care (01) ==
LOC: PNCL 13:14
PROVIDERS: ATTEND Anesthesiology
DX: M51.16 Intervertebral disc disorders with radiculopathy, lumbar region (principal); Z79.82 Long term (current) use of aspirin; Z79.899 Other long term (current) drug therapy
CPT/HCPCS: 62323; J1100; Q9965